=== PATIENT | female | born 1965 | race Caucasian/White ===

== ENCOUNTER 2025-08-10 10:19 | Day surgery (SDC) | payer BC ==
[~2025-08-10] VITALS: Ht 172.7 cm; Wt 111.9 kg
[~2025-08-10 10:19] MED LIST: ATOG60TA PO; GNP1000T11 PO; LACO50TA12 PO; MIDAZOLAM INJ 2 MG/2 ML VIAL As Ordered ONE; PHENYLEPHRINE 10% OPHTH SOL 5ML OS PRN; ROSU20TA86 PO; TIRZ2.5P SQ; VENTAER INH
[2025-08-10] MEDS ORDERED: dexmedeTOMIDine (4 MCG/ML) 200 MCG/50 ML BTL As Ordered ONE (11:48)
[2025-08-10] MEDS ORDERED: KETAMINE HCL 200 MG/20 ML VIAL As Ordered ONE (11:50)
[2025-08-10] MEDS: LIDOCAINE 3.5% 1 ML OPHTH TOPICAL GEL OU ONE (12:17)
[2025-08-10] MEDS: PHENYLEPHRINE 2.5% OPHTH SOL 2ML OS SCH (12:17)
[2025-08-10] MEDS: TROPICAMIDE 1% OPHTH SOLN 15ML OS SCH (12:17)
[2025-08-10] MEDS: CYCLOPENTOLATE 1% OPHTH SOLN 2 ML BTL OS SCH (12:17)
[2025-08-10] MEDS: OFLOXACIN 0.3 % (OCUFLOX) OPTH SOL 5ML OS ONE (12:17)
[2025-08-10] MEDS: BSS IRRIG/VANCO(10MG)/TOBRA(5MG)/EPINEPH(1:1000-0.5CC)500ML BAG-ORONLY As Ordered ONE (12:40)
[2025-08-10] MEDS: LIDOCAINE 1% SDV 5 ML VIAL As Ordered ONE (12:40)
[2025-08-10] MEDS: CEFUROXIME 1 MG/0.1 ML INTRACAMERAL INJ As Ordered ONE (12:40)
[2025-08-10] MEDS: ONDANSETRON 4MG 2ML VIAL IV ONE (13:22)
[2025-08-10 13:37] VITALS: BP 142/79; TEMP 98.2; O2SAT 97
== END 2025-08-10 13:40 | disposition home or self-care (01) ==
LOC: M SDC 10:19
PROVIDERS: ATTEND Ophthalmology
DX: H25.12 Age-related nuclear cataract, left eye (principal); J45.909 Unspecified asthma, uncomplicated; R73.03 Prediabetes; E78.00 Pure hypercholesterolemia, unspecified; Z79.899 Other long term (current) drug therapy; Z79.85 Long-term (current) use of injectable non-insulin antidiabetic drugs; Z88.0 Allergy status to penicillin; Z98.84 Bariatric surgery status
CPT/HCPCS: 66984; 92015; J0697; J2250; J2405; J3010; V2788